=== PATIENT | male | born 1950 | race African-American/Black ===

== ENCOUNTER 2025-06-26 14:36 | Emergency (ER) | payer OTHER, MEDICAID ==
[~2025-06-26] VITALS: Ht 157.5 cm; Wt 68.2 kg
[~2025-06-26 14:36] MED LIST: ASPI-394; CAPT50TA5; CARV25TA55; FOLI-119; NIFEDICAL XL; PRAVASTATIN; RABE20TA19; THIA100T30; [UNRECOGNIZED DRUG - CODE]
--- NOTE | 2025-06-26 15:00 | ECG ---
[facility] Test Date: 2025-06-26 Test Time: 14:59:26 Pat Name: ADAN HWANG Department: [facility] ED Patient ID: [id number] Room: Gender: M Manager Eligibility: CHEO : 1950 Requested By: OPAL DUONG Order Number: [id number] Reading MD: Patrick Amaro Measurements Intervals [place] Rate: 54 P: 66 MI: 169 QRS: 91 QRSD: 104 T: 63 QT: 473 QTc: 449 Interpretive Statements Sinus rhythm Right axis deviation ST elevation, consider inferior injury Electronically Signed On 06-30-2025 18:35:04 PDT by Patrick Amaro Please click the below link to view image of tracing.
--- NOTE | 2025-06-26 15:02 | ED.PDOC ---
HPI (NEURO) HPI Comments 74-year-old male presents here status post presyncopal episode. Per EMS family and patient were at a park when they noticed he was pale cool diaphoretic and had a presyncopal episode. Unknown if he hit his head. Patient is unable to provide history due to his known history of dementia. Patient is at his normal mental baseline per medics. Patient was found to be hypotensive in the 100s on scene and was given a 250 bolus. Patient is not on any blood thinners. No family at bedside for additional history. Patient unable to provide history due to advanced dementia Chief Complaint: Syncope Time Seen by MD: 14:43 Primary Care Provider: AMIE DELGADO Reviewed Notes: Manager Hris Notes Information Source: Patient, Emergency Med Personnel Mode of Arrival: EMS Brought in by: EMS Past Medical History PAST MEDICAL HISTORY: Arthritis, CAD, CHF, Dementia, GERD, High Lipids, HTN Surgical History: CABG Family History Family History: No family hx of Heart cortney, No family hx of HTN Social History Smoker: Non-Smoker, Quit Greater Than 1 Year Alcohol: Denies ETOH Use Drugs: Denies Drug Use Lives In: Home Constitutional: denies: chills, diaphoresis, fatigue, fever, malaise, sweats, weakness, others EENTM: denies: blurred vision, double vision, ear bleeding, ear discharge, ear drainage, ear pain, ear ringing, eye pain, eye redness, hearing loss, mouth pain, mouth swelling, nasal discharge, nose bleeding, nose congestion, nose pain, photophobia, tearing, throat pain, throat swelling, voice changes, others Respiratory: denies: cough, hemoptysis, orthopnea, SOB at rest, shortness of breath, SOB with excertion, stridor, wheezing, others Cardiovascular: denies: chest pain, dizzy spells, diaphoresis, Dyspnea on exertion, edema, irregular heart beat, left arm pain, lightheadedness, palpitations, PND, syncope, others Gastrointestinal: denies: abdomen distended, abdominal pain, blood streaked bowels, constipated, diarrhea, dysphagia, difficulty swallowing, hematemesis, melena, nausea, poor appetite, poor fluid intake, rectal bleeding, rectal pain, vomiting, others Genitourinary: denies: burning, dysuria, flank pain, frequency, hematuria, incontinence, penile discharge, penile sore, pain, testicle pain, testicle swelling, urgency, others Neurological: reports: fainting; denies: dizziness, headache, left sided numbness, left sided weakness, numbness, paresthesia, pre-existing deficit, right sided numbness, right sided weakness, seizure, speech problems, tingling, tremors, weakness, others Musculoskeletal: denies: back pain, gout, joint pain, joint swelling, muscle pain, muscle stiffness, neck pain, others Integumetry: denies: bruises, change in color, change in hair/nails, dryness, laceration, lesions, lumps, rash, wounds, others Allergic/Immunocompromised: denies: Difficulty Healing, Frequent Infections, Hives, Itching, others Hematologic/Lymphatic: denies: anemia, blood clots, easy bleeding, easy bruising, swollen glands, others Endocrine: denies: excessive hunger, excessive sweating, excessive thirst, excessive urination, flushing, intolerance to cold, intolerance to heat, unexplained weight gain, unexplained weight loss, others Psychiatric: denies: anxiety, bipolar disorder, depression, hopeless, panic disorder, schizophrenia, sleepless, suicidal, others Unable to Obtain due to: Dementia All Other Systems: Reviewed and Negative Physical Exam General Appearance: No Apparent Distress, Normal HEENT: Normal ENT Inspection, Pharynx Normal, TMs Normal Neck: Full Range of Motion, Non-Tender, Normal, Normal Inspection Respiratory: Chest Non-Tender, Lungs Clear, No Accessory Muscle Use, No Respiratory Distress, Normal Breath Sounds Cardiovascular: No Edema, No JVD, No Murmur, No Gallop, Normal Peripheral Pulses, Regular Rate/Rhythm Breast Exam: Deferred Gastrointestinal: No Organomegaly, Non Tender, No Pulsatile Mass, Normal Bowel Sounds, Soft Genitalia: Deferred Pelvic: Deferred Rectal: Deferred Extremities: Other (Nontender CT and L-spine) Musculoskeletal : Apperance: Normal Neurologic: Alert, No Motor Deficits, Normal Affect, Normal Mood, No Sensory Deficits, Other (Patient had normal mental baseline. Patient knows his name only. Not oriented to date, year time or situation) Cerebellar Function: Normal Reflexes: Normal Skin: Dry, Normal Color, Warm Lymphatic: No Adenopathy EKG EKG : Comments Rate of [address] changes Was a procedure done? Was a procedure done?: No Differential Diagnosis (SZ) Seizure: Other, N/A CVA: Other General Weakness: Anemia, CVA, Dehydration, Dysrhythmia, Electrolyte imbalance, Hypoglycemia, Hypotension, Hypovolemia, Myocardial infarction, Pulmonary embolus, Renal failure, TIA, Vertigo: central, Vertigo: peripheral, Vestibular neuronitis Headache: N/A X-Ray, Labs, Meds, VS Vital Signs Date Time Temp Pulse Resp B/P (MAP) Pulse Ox O2 Delivery O2 Flow Rate FiO2 06/26/25 14:59 54 06/26/25 14:52 98.0 71 16 129/71 99 98.0 Lab Test 06/26/25 15:45 Range/Units White Blood Count 4.3 L 4.4-10.8 10^3/uL Red Blood Count 4.25 L 4.5-5.90 10^6/uL Hemoglobin 12.9 L 13.5-17.5 g/dL Hematocrit 38.4 L 41.0-53.0 % Mean Corpuscular Volume 90.5 80.0-100.0 fL Mean Corpuscular Hemoglobin 30.3 28.0-32.0 pg Mean Corpuscular Hemoglobin Concent 33.5 32.0-36.0 g/dL Red Cell Distribution Width 14.7 H 11.8-14.3 % Platelet Count 119 L 140-450 10^3/uL Mean Platelet Volume 8.7 6.9-10.8 fL Neutrophils (%) (Auto) 71.8 37.0-80.0 % Lymphocytes (%) (Auto) 14.3 10.0-50.0 % Monocytes (%) (Auto) 11.4 0.0-12.0 % Eosinophils (%) (Auto) 1.9 0.0-7.0 % Basophils (%) (Auto) 0.6 0.0-2.0 % Neutrophils # (Auto) 3.1 1.6-8.6 10 ^3/uL Lymphocytes # (Auto) 0.6 0.4-5.4 10 ^3/uL Monocytes # (Auto) 0.5 0-1.3 10 ^3/uL Eosinophils # (Auto) 0.1 0-0.8 10 ^3/uL Basophils # (Auto) 0 0-0.2 10 ^3/uL Nucleated Red Blood Cells 0.2 % Sodium Level 145 136-145 mmol/L Potassium Level 3.8 3.5-5.1 mmol/L Chloride Level 109 H 98-107 mmol/L Carbon Dioxide Level 26 20-31 mmol/L Anion Gap 10 5-15 Blood Urea Nitrogen 27 H 9-23 mg/dL Creatinine 1.94 H 0.700-1.30 mg/dL Glomerular Filtration Rate Calc 35 >90 mL/min BUN/Creatinine Ratio 13.9 10.0-20.0 Serum Glucose 95 74-106 mg/dL Calcium Level 9.2 8.7-10.4 mg/dL Troponin I High Sensitivity Pending [facility] [id number] [address] [id number] Ph: [phone] DIAGNOSTIC IMAGING Diagnostic Imaging Report : [id number] Signed PATIENT: ADAN HWANG JR ACCT: [id number] UNIT: [id number] : 1950 LOC: ER ROOM / BED: / AGE / SEX: 74 / M ADM STATUS: REG ER SERVICE [id number] ORDERING PHYSICIAN: OPAL DUONG MD PROCEDURE(s): HWOCT - HEAD WITHOUT CONTRAST REASON: ro ich ORDER NUMBER(s): [id number], ACCESSION NUMBER(s): [id number] CT HEAD WITHOUT CONTRAST Indication: ro ich EXAM DATE: 06/26/2025 03:22 PM COMPARISON: None TECHNIQUE: CT of the head without intravenous contrast. RADIATION DOSE: CTDIvol: 54 mGy, DLP: 864 mGy*cm FINDINGS: There is no intracranial hemorrhage. There is no extra-axial fluid, mass, mass effect or midline shift. The ventricles are midline and normal in size. Basilar cisterns are patent. There are moderate periventricular and subcortical white matter chronic microvascular ischemic changes. Moderate global cerebral volume loss. The paranasal sinuses and mastoids are well-pneumatized. Imaged portion of the orbits are unremarkable. IMPRESSION: No intracranial hemorrhage or mass effect. Moderate chronic microvascular ischemic changes. Moderate global cerebral volume loss. ATED BY: BRANDON MA MD DICTATED DATE/TIME: 06/26/25 160 SIGNED BY: BRANDON MA MD SIGNED DATE/TIME: 06/26/25 1604 CC: 74-year-old male presents here status post presyncopal episode. Per EMS he was at a park when the episode occurred. Unclear if he hit his head. Therefore I have ordered a CT scan of his brain. He is not on any blood thinners. Patient unable to provide any type of history due to his advanced dementia which is he seems to be at his normal mental baseline. No family at bedside. CBC BMP troponin and EKG also has been ordered. Patient received a 250 bolus by EMS and I have ordered additional 500 cc bolus. Given he was at a park it is possible this could be related dehydration however acute arrhythmia also possibility. At this time a CBC BMP EKG have returned. CBC is within normal limits but BMP demonstrates acute kidney injury. EKG with nonspecific changes. Troponin is pending. However given patient's current symptoms in his acute kidney injury, I believe he would benefit from inpatient admission. Hospitalist team has been contacted. Time of 1ST Reevaluation: 15:56 Reevaluation 1ST: Unchanged Patient Education/Counseling: Diagnosis, Treatment Family Education/Counseling: No Family Present Departure 1 Departure Time of Disposition: 16:14 Impression: Primary Impression: Pre-syncope Additional Impressions: ADRIANNA (acute kidney injury) History of dementia Disposition: ADMITTED INPATIENT Condition: Fair Critical Care Note Critical Care Time?: No Stability Stability form required: No Heart Score Heart Score: Heart Score Response (Comments) Value History Moderate Suspicious 1 EKG Repolarization Disturb 1 Age >65 2 Risk Factors 1 or 2 risk factors 1 Troponin Normal limit 0 Total 5 I personally scribed for OPAL DUONG MD ([email or web address]) on 06/26/25 at 15:38. Electronically submitted by Lynn Denis ([facility] I personally scribed for OPAL DUONG MD ([email or web address]) on 06/26/25 at 16:12. Electronically submitted by Lynn Denis ([facility]). I personally scribed for OPAL DUONG MD ([email or web address]) on 06/26/25 at 16:16. Electronically submitted by Lynn Denis ([facility]). I personally scribed for OPAL DUONG MD [facility] on 06/26/25 at 16:16. Electronically submitted by Lynn Denis ([facility] OPAL DUONG MD Jun 26, 2025 15:02
[2025-06-26 15:57] LABS: Hematocrit 38.4 % (41.0-53.0); Hemoglobin 12.9 g/dL (13.5-17.5); Mean Corpuscular Hemoglobin 30.3 pg (28.0-32.0); Mean Corpuscular Volume 90.5 fL (80.0-100.0); Nucleated Red Blood Cells % 0.2 %
[2025-06-26 16:00] LABS: Potassium 3.8 mmol/L (3.5-5.1); Sodium 145 mmol/L (136-145)
[2025-06-26 16:01] LABS: Anion Gap 10 (5-15); Calcium 9.2 mg/dL (8.7-10.4); Carbon Dioxide 26 mmol/L (20-31)
--- NOTE | 2025-06-26 16:03 | DVH ---
CT HEAD WITHOUT CONTRAST Indication: ro ich EXAM DATE: 06/26/2025 03:22 PM COMPARISON: None TECHNIQUE: CT of the head without intravenous contrast. RADIATION DOSE: CTDIvol: 54 mGy, DLP: 864 mGy*cm FINDINGS: There is no intracranial hemorrhage. There is no extra-axial fluid, mass, mass effect or midline shif t. The ventricles are midline and normal in size. Basilar cisterns are patent. There are moderate per iventricular and subcortical white matter chronic microvascular ischemic changes. Moderate global ce rebral volume loss. The paranasal sinuses and mastoids are well-pneumatized. Imaged portion of the orbits are unremarkabl e. IMPRESSION: No intracranial hemorrhage or mass effect. Moderate chronic microvascular ischemic changes. Moderate global cerebral volume loss.
[2025-06-26 16:06] LABS: Glucose 95 mg/dL (74-106)
[2025-06-26 16:08] LABS: BUN/Creatinine Ratio 13.9 (10.0-20.0); Blood Urea Nitrogen 27 mg/dL (9-23); Chloride 109 mmol/L (98-107)
[2025-06-26 20:25] VITALS: BP 125/62; PULSE 51; RESP 18; TEMP 98.1; O2SAT 98
[2025-06-26] MEDS: SODIUM CHLORIDE 0.9% 500 ML IV ONE (20:53)
[2025-06-26] MEDS ORDERED: ACETAMINOPHEN 325 MG TAB PO PRN (21:30)
[2025-06-26] MEDS ORDERED: ONDANSETRON HCL 4 MG/2 ML VIAL IV PRN (21:30)
[2025-06-26] MEDS ORDERED: HYDROcodone-ACET 5/325MG TAB PO PRN (21:30)
[2025-06-26] MEDS ORDERED: DOCUSATE SOD 100 MG CAP PO PRN (21:30)
[2025-06-26] MEDS ORDERED: ATORVASTATIN 20 MG TAB PO SCH (22:00)
[2025-06-26] MEDS ORDERED: FAMOTIDINE (10MG/ML) 2ML VL IV SCH (22:00)
[2025-06-26] MEDS ORDERED: SODIUM CHLOR 0.9% PF (SALINE LOCK) 10ML VIAL/SYR IV SCH (22:00)
[2025-06-27] MEDS ORDERED: THIAMINE HCL 100 MG TAB PO SCH (10:00)
[2025-06-27] MEDS ORDERED: FOLIC ACID 1 MG TAB PO SCH (10:00)
[2025-06-27] MEDS ORDERED: CARVEDILOL 3.125 MG TAB PO SCH (22:00)
== END 2025-06-26 21:45 | disposition left against medical advice (07) ==
LOC: ER 14:36 → EDBD 14:36 → ER 21:45
DX: N17.9 Acute kidney failure, unspecified (principal); F03.90 Unspecified dementia, unspecified severity, without behavioral disturbance, psychotic disturbance, mood disturbance, and anxiety; I11.0 Hypertensive heart disease with heart failure; I50.9 Heart failure, unspecified; I25.10 Atherosclerotic heart disease of native coronary artery without angina pectoris; M19.90 Unspecified osteoarthritis, unspecified site; Z95.1 Presence of aortocoronary bypass graft; Z98.890 Other specified postprocedural states
CPT/HCPCS: 36415; 70450; 80048; 83880; 84484; 85025; 93005; 99284; J7040